=== PATIENT | female | born 1995 | race Caucasian/White ===

== ENCOUNTER 2024-07-26 14:10 | Outpatient (CLI) | payer MEDICAID, SELFPAY ==
--- OUTSIDE RECORDS SUMMARY | 2024-07-26 14:13 | XMS_ITS | Clinical Summary ---
Author Organization [facility] Address [place], [place] [address] Care Team Providers Care Protective Signal Superintendent Name Role Phone Pcp, No Primary Care Provider Unavailabl e Allergies No known active allergies Medications Medication Sig Dispensed Refills Start Date End Date Status Psyllium Seed-Sucrose (METAMUCIL) powder Take 1 tsp by mouth 3 times daily. 0 03/21/2015 Active polyethylene glycoL (MIRALAX) 17 gram/dose powder Take 17 g by mouth. 0 03/21/2015 Active naproxen (NAPROSYN) 500 mg tabletIndications:Art hropathy of lumbar facet joint Take 1 tablet by mouth 2 times daily with meals. 60 tablet 2 03/23/2015 Active Active Problems No known active problems Family History Medical History Relation Name Comments Cancer Paternal Grandfather lung ca ncer Other Other disc surgery mo ther and grandfather Relation Name Status Comments Paternal Grandfather Other Social History Tobacco Use Types Packs/Day Years Used Date Smoking Tobacco: Never Tobacco Cessation:Counseling Given: Yes Alcohol Use Standard Drinks/Week Comments Yes 0 (1 standard drink = 0.6 oz pur e alcohol) 2 times total last year Sex and Gender Information Value Date Recorded Sex Assigned at Not on file Gender Identity Not on file Sexual Orientation Not on file Obstetrics History Last Filed Vital Signs Vital Sign Reading Time Taken Comments Blood Pressure 101/45 03/23/2015 11:19 AM CDT Pulse 48 03/23/2015 11:19 AM CDT Temperature 36.8 C (98.3 F) 03/21/2015 3:42 PM CDT Respiratory Rate - - Oxygen Saturation 100% 03/23/2015 11:19 AM CDT Inhaled Oxygen Concentration - - Weight 62.1 kg (137 lb) 03/23/2015 11:19 AM CDT Height 167.6 cm (5' 5.98) 03/23/2015 11:19 AM C DT Body Mass Index 22.12 03/23/2015 11:19 AM CDT Plan of Treatment Health Maintenance Due Date Last Done Comments Tdap 02/09/2007 Depression screening for age 12+ 2008 HIV for age 15-65 02/09/2011 BMI (ht and wt on same day) for age 18+ 02/09/2014 Hepatitis C screening for ag e 18-79 02/09/2014 Tetanus booster 2016 COVID-19 vaccine series (2023- season) 2024 Influenza for age 9-49 04/24/2024 Pap test for age 21-65 08/15/2024 , 03/10/2018 Pneumococcal series for age 6-64 Aged Out No longer eligible b ased on patient's age to complete this topic Procedures Procedure Name Priority Date/Time Associated Diagnosis Comments MANAGER COMBINATION THIN PREP PAP SCREEN IMAGED Routine 08/15/2021 12:00 PM TRAIN STARTER from Last 3 Months or Most Recently Relevant to Health Maintenance Results * MANAGER COMBINATION THIN PREP PAP SCREEN IMAGED (08/15/2021 12:00 PM TRAIN STARTER) Case Report Gynecologic Cytology Report Case: [id number] Authorizing Provider: Lucia Murillo MD Collected: 08/15/2021 1200 Ordering Location: [facility] Received: 08/19/2021 0812 First Screen: Cary Farley Specimen: MANAGER COMBINATION ThinPrep Vial Screening, Cervical/Vaginal 09/02/2021 1:57 PM TRAIN STARTER [facility] INTERPRETATION/ RESULT NEGATIVE FOR INTRAEPITHELIAL LESION OR MALIGNANCY (NIL) (none) 09/02/2021 1:57 PM TRAIN STARTER [facility] IMEN ADEQUACY Satisfactory for evaluation Endocervical component present 09/02/2021 1:57 PM TRAIN STARTER [facility] HPV REQUEST HPV if ASCUS 09/02/2021 1:57 PM TRAIN STARTER [facility] Date of LMP 08/05/2021 09/02/2021 1:57 PM TRAIN STARTER [facility] Additional Information 09/02/2021 1:57 PM TRAIN STARTER [facility]- EN[facility]AL [facility] Comment: Interpreted at [facility] [place] [facility] - [address], [place] [address] Automated Review Successful 09/02/2021 1:57 PM TRAIN STARTER [facility]- ENTRAL LABORATORY Comment:Specimen processed s uccessfully by automated dentistry teacher device, [employer] Imaging System, [employer] Note The pap test is a screening technique, not a diagnostic procedure. It is used primarily to screen for squamous cancers and precursor lesions. Published studies have shown that it is subject to both false negative and false positive results. The pap test should not be used as the sole means to diagnose or exclude pre-malignant and malignant lesions. 09/02/2021 1:57 PM TRAIN STARTER [facility] Other (Cervical/Vagina l) 08/15/2021 12:00 PM TRAIN STARTER 08/19/2021 8:12 AM TRAIN STARTER Lucia Murillo MD PATHOLOGY/CYTOLOGY [facility] [address] [place] [address], from Last 3 Months or Most Recently Relevant to Health Maintenance Care Teams Protective Signal Superintendent Relationship Specialty Start Date End Date Pcp, No . PCP - General 03/19/15
[2024-07-26 22:27] LABS: Chlamydia DNA Amplified* NOT DETECTED (No Detected); GC DNA Amplified* NOT DETECTED (No Detected)
[2024-07-29 05:35] LABS: HPV Source Cervix; HPV, High Risk by TMA Not Detected
== END 2024-07-26 14:11 | disposition home or self-care (01) ==
PROVIDERS: Registered Nurse; PCP Internal Medicine; Visit Provider Internal Medicine
DX: R53.83 Other fatigue (principal); Z12.4 Encounter for screening for malignant neoplasm of cervix; Z11.3 Encounter for screening for infections with a predominantly sexual mode of transmission; Z13.6 Encounter for screening for cardiovascular disorders; Z13.9 Encounter for screening, unspecified
CPT/HCPCS: 80053; 80061; 82306; 84443; 87491; 87591; 87624; 87625; 88141; 88142